=== PATIENT | female | born 1990 | race Caucasian/White ===

== ENCOUNTER 2017-03-05 03:10 | Emergency (ER) | payer BC ==
[~2017-03-05] VITALS: Ht 160 cm; Wt 59.0 kg
[2017-03-05] MEDS ORDERED: SPIRONOLACTONE 50 MG TABLET (03:26)
[2017-03-05] MEDS ORDERED: FAMOTIDINE. 20 MG/2 ML VIAL IV ONE ×2 (03:30→03:59)
[2017-03-05] MEDS ORDERED: ONDANSETRON 4 MG/2 ML VIAL IV ONE (03:30)
[2017-03-05] MEDS ORDERED: KETOROLAC TROMETHAMINE 15 MG INJ IV ONE (03:30)
[2017-03-05] MEDS ORDERED: DICYCLOMINE HCL 20 MG TABLET PO SCH (03:30)
[2017-03-05] MEDS ORDERED: IV NORMAL SALINE 1000 ML BAG IV ONE (03:30)
[2017-03-05 03:49] LABS: BASOPHILS # (AUTO) 0.1 K/uL (0.0-8.0); BASOPHILS % (AUTO) 0.6 % (0.0-2.0); EOSINOPHILS % (AUTO) 0.3 % (0.0-7.0); HEMATOCRIT 41.4 % (37-47); LYMPHOCYTES % (AUTO) 10.8 % (20.5-51.5); MEAN CORPUSCULAR HEMOGLOBIN 31.1 UUG (27.0-31.0); MEAN CORPUSCULAR HGB CONC 34 g/dL (32.0-37.0); MEAN CORPUSCULAR VOLUME 91.7 FL (81.0-99.0); MONOCYTES # (AUTO) 0.4 K/UL (0.1-1.30); MONOCYTES % (AUTO) 3.9 % (0.0-11.0); NEUTROPHILS # (AUTO) 7.9 K/UL (1.8-8.9); NEUTROPHILS % (AUTO) 84.4 % (38.5-71.5); PLATELET COUNT (AUTO) 181 K/UL (150-450); RED BLOOD CELL COUNT(AUTO) 4.52 MIL/UL (4.2-5.4); WHITE BLOOD COUNT (AUTO) 9.4 K/UL (4.0-11.2)
[2017-03-05 03:56] LABS: BILIRUBIN,DIRECT 0.3 mg/dL (0.0-0.2); BILIRUBIN,TOTAL 1.5 mg/dL (0.2-1.0); CREATININE 0.8 mg/dL (0.6-1.3); POTASSIUM 3.8 mmol/L (3.5-5.1); TOTAL PROTEIN, SERUM 8.3 g/dL (6.4-8.2)
[2017-03-05] MEDS ORDERED: ONDANSETRON 4 MG/2 ML VIAL ONE (03:58)
[2017-03-05] MEDS ORDERED: KETOROLAC TROMETHAMINE 30 MG INJ ONE (03:58)
[2017-03-05] MEDS ORDERED: DICYCLOMINE HCL 10 MG/5 ML UDC LIQ PO ONE (04:00)
[2017-03-05] MEDS ORDERED: DICYCLOMINE HCL 10 MG/5 ML UDC LIQ ONE (04:07)
[2017-03-05] MEDS ORDERED: METOCLOPRAMIDE HCL 10 MG/2 ML VIAL IV ONE (04:15)
[2017-03-05] MEDS ORDERED: METOCLOPRAMIDE HCL 10 MG/2 ML VIAL ONE (04:15)
[2017-03-05] MEDS ORDERED: diphenhydrAMINE 50 MG/1 ML VIAL IV ONE (04:30)
[2017-03-05] MEDS ORDERED: diphenhydrAMINE 50 MG/1 ML VIAL ONE (04:38)
--- NOTE | 2017-03-05 05:19 | NUR ---
Patient discharged to home in stable conditon. Written and verbal after care instructions given. Patient verbalizes understanding of instructions. Ambulated from ER with stable gait. All belongings with patient. patient will be drive home by mother in private vehicle. Patient aware not to drive or operate heavy machinery. patient states she will comply. Peripheral IV removed prior to discharge.
[2017-03-05 05:22] VITALS: BP 119/70
== END 2017-03-05 05:23 | disposition home or self-care (01) ==
LOC: ER 03:12
DX: R10.13 Epigastric pain (principal); R10.12 Left upper quadrant pain; R11.0 Nausea; Z90.49 Acquired absence of other specified parts of digestive tract; Z79.899 Other long term (current) drug therapy; Z88.0 Allergy status to penicillin
CPT/HCPCS: 36415; 83690; 84703; 85025; A4663; J1200; J1885; J2405; J2765; J3490; J7030

== ENCOUNTER 2017-03-09 01:03 | Emergency (ER) | payer BC ==
[~2017-03-09] VITALS: Ht 157.5 cm; Wt 58.1 kg
[~2017-03-09 01:03] MED LIST: SPIRONOLACTONE 50 MG TABLET
[2017-03-09] MEDS ORDERED: KETOROLAC TROMETHAMINE 15 MG INJ IV ONE (01:45)
[2017-03-09] MEDS ORDERED: ONDANSETRON 4 MG/2 ML VIAL IV ONE (01:45)
[2017-03-09] MEDS ORDERED: IV NORMAL SALINE 1000 ML BAG IV ONE (01:45)
[2017-03-09 01:46] LABS: *BILIRUBIN,URIN NEGATIVE (NEGATIVE); *BLOOD, URINE NEGATIVE (NEGATIVE); *CLARITY,URINE SLIGHTLY CLOUDY (CLEAR); *COLOR,URINE STRAW (YELLOW); *KETONES,URINE NEGATIVE (NEGATIVE); *PROTEIN,URINE NEGATIVE (NEGATIVE); *UROBILINOGEN,URINE 0.2 E.U./dl (NORMAL); LEUKOCYTE ESTERASE ,URINE NEGATIVE (NEGATIVE); NITRITE, URINE NEGATIVE (NEGATIVE); UGLUCOSE NEGATIVE (NEGATIVE)
[2017-03-09 01:49] LABS: *URINE HCG, QUAL NEGATIVE (NEGATIVE); BACTERIA,URINE FEW /HPF (NONE SEEN); RBC,URINE NONE SEEN /HPF (0-3); SQUAMOUS EPITHELIAL CELL,UR FEW /HPF (NONE SEEN); WBC,URINE 0-3 /HPF (0-3)
[2017-03-09 01:50] LABS: BASOPHILS # (AUTO) 0.1 K/uL (0.0-8.0); BASOPHILS % (AUTO) 0.8 % (0.0-2.0); EOSINOPHILS # (AUTO) 0.1 K/uL (0.0-0.7); EOSINOPHILS % (AUTO) 1.8 % (0.0-7.0); HEMATOCRIT 41.2 % (37-47); HEMOGLOBIN 13.7 G/DL (12.0-16.0); LYMPHOCYTES # (AUTO) 2.2 K/UL (0.8-4.8); MEAN CORPUSCULAR HEMOGLOBIN 30.5 UUG (27.0-31.0); MEAN CORPUSCULAR HGB CONC 33 g/dL (32.0-37.0); MEAN CORPUSCULAR VOLUME 91.9 FL (81.0-99.0); MONOCYTES # (AUTO) 0.6 K/UL (0.1-1.30); MONOCYTES % (AUTO) 8.6 % (0.0-11.0); NEUTROPHILS # (AUTO) 4.2 K/UL (1.8-8.9); NEUTROPHILS % (AUTO) 57.8 % (38.5-71.5); PLATELET COUNT (AUTO) 185 K/UL (150-450); RED BLOOD CELL COUNT(AUTO) 4.48 MIL/UL (4.2-5.4); WHITE BLOOD COUNT (AUTO) 7.2 K/UL (4.0-11.2)
[2017-03-09] MEDS ORDERED: ONDANSETRON 4 MG/2 ML VIAL ONE (02:01)
[2017-03-09 02:04] LABS: CREATININE 0.9 mg/dL (0.6-1.3); POTASSIUM 3.4 mmol/L (3.5-5.1)
[2017-03-09 02:08] LABS: BILIRUBIN,DIRECT 0.3 mg/dL (0.0-0.2); BILIRUBIN,TOTAL 1.6 mg/dL (0.2-1.0); TOTAL PROTEIN, SERUM 7.9 g/dL (6.4-8.2)
--- NOTE | 2017-03-09 02:08 | NUR ---
PATIENT OUT OF UNIT FOR CT SCAN VIA WHEELCHAIR
[2017-03-09] MEDS ORDERED: KETOROLAC TROMETHAMINE 15 MG INJ ONE (02:15)
--- NOTE | 2017-03-09 02:18 | NUR ---
PATIENT BACK FROM CT SCAN WITH NO DISTRESS NOTED
--- NOTE | 2017-03-09 03:20 | NUR ---
PATIENT STATES "I FEEL ALOT BETTER NOW."
--- NOTE | 2017-03-09 03:22 | NUR ---
IV removed. Catheter intact and site benign. Pressure and 4x4 gauze applied to site. No bleeding noted.
--- NOTE | 2017-03-09 03:31 | NUR ---
Patient discharged to home in stable conditon WITH MOTHER TAKING PATIENT HOME. Written and verbal after care instructions given. Patient verbalizes understanding of instructions. WALKED OUT OF ER WITH STEADY GAIT. NO DISTRESS NOTED
[2017-03-09 03:32] VITALS: BP 117/74
== END 2017-03-09 03:33 | disposition home or self-care (01) ==
LOC: ER 01:05
DX: K52.9 Noninfective gastroenteritis and colitis, unspecified (principal); Z88.0 Allergy status to penicillin
CPT/HCPCS: 36415; 83690; 84703; 85025; A4663; J1885; J2405; J7030